=== PATIENT | female | born 1960 | race Caucasian/White ===

== ENCOUNTER 2017-09-30 09:24 | Emergency (ER) | payer BC, OTHER ==
[~2017-09-30] VITALS: Ht 175.3 cm; Wt 98.7 kg
[~2017-09-30 09:24] MED LIST: ATV/1 PO; BACL1TAB PO; DYZ PO; GABA100C13 PO; LEVO200T20 PO; MORP1CAP91 PO; OXYC-57 PO; RIZA10TA18 PO; RQP2 PO; TRAZ1TAB52 PO
[2017-09-30 09:30] VITALS: TEMP 36.7; Ht 175.3 cm; Wt 98.7 kg
[2017-09-30] MEDS ORDERED: SODIUM CHLORIDE 0.9% 1000ML 1,000 ML IV STA (09:45)
[2017-09-30] MEDS ORDERED: KETOROLAC TROMETHAMINE 30 MG/ML VIAL IV STA (09:45)
--- NOTE | 2017-09-30 09:57 | EMERGENCY ROOM VISIT NOTE ---
History Report prepared by Lolis: Keaton Fink Under the Supervision of: Dr. Theron Conrad M.D. First contact with patient: 09:38 Chief Complaint: ABDOMINAL PAIN Stated Complaint: PAIN IN LOWER RIGHT ABDOMINAL AREA History of Present Illness The patient is a 57 year old female who presents to the Emergency Room with complaints of constant right sided abdominal pain for the past two weeks. The patient states that the pain started in the right upper quadrant, and she went to the ED, though her CT and chest x-ray were negative. She states that the pain is now in the right lower quadrant. She state that there is a throbbing pain, and the pain is worsened with movement, and it is going into her back. The patient denies any recent heavy lifting, fever, chills, cough, congestion, nausea, vomiting, hematuria, and burning with urination. The patient states that she has been having normal bowel movements daily for the past two weeks, and she does not need to strain. The patient additionally notes that she has been having some right knee pain for the past 4 days, and she has a history of right knee surgery. She states that she has a history of 5 hernia repairs, a history of a cholecystectomy, and she had a ruptured ovarian cyst when she was younger. She does not have a history of kidney stones. The patient notes that she took Percocet yesterday for the pain, and she is not on any blood thinners. The patient state that she is active while at work. Source of History: patient Onset: 2 weeks ago Position: abdomen (right sided) Quality: other (throbbing) Timing: constant Modifying Factors (Worsening): movement Associated Symptoms: No fevers, No chills, No cough, No nausea, No vomiting Review of Systems See HPI for pertinent positives and negatives. A total of ten systems were reviewed and were otherwise negative. Past Medical & Surgical Surgical Problems: (1) H/O hernia repair (2) Hx of cholecystectomy Family History Cancer Hypertension Social History Smoking Status: Current Every Day Smoker Housing Status: lives with family Occupation Status: disabled Current/Historical Medications Scheduled Aspirin (Aspirin Ec), 81 MG PO HS Levothyroxine Sodium (Levothyroxine Sodium), 300 MCG PO HS Omeprazole (Prilosec), 20 MG PO HS Scheduled PRN Oxycodone/Acetaminophen 10MG/325MG (Percocet 10MG/325MG), 0.5 TAB PO TID PRN for Pain Allergies Coded Allergies: Morphine (Verified Allergy, Severe, GI SYMPTOMS, 09/30/17) GI sx, sob, low heart rate Fentanyl (Verified Adverse Reaction, Unknown, vomiting, 09/30/17) Physical Exam Vital Signs Date Time Temp Pulse Resp B/P (MAP) Pulse Ox O2 Delivery O2 Flow Rate FiO2 09/30/17 12:55 60 18 156/69 98 09/30/17 11:55 54 20 161/95 98 Room Air 09/30/17 09:30 36.7 60 20 163/120 98 Room Air Physical Exam GENERAL: Awake, alert, well-appearing, in no distress HENT: Normocephalic, atraumatic. Oropharynx unremarkable. EYES: Normal conjunctiva. Sclera non-icteric. NECK: Supple. No nuchal rigidity. FROM. No JVD. RESPIRATORY: Clear to auscultation. CARDIAC: Regular rate, normal rhythm. Extremities warm and well perfused. Pulses equal. ABDOMEN: Soft, non-distended. Mild right-sided abdominal discomfort with no discrete tenderness. No rebound or guarding. No masses. RECTAL: Deferred. MUSCULOSKELETAL: Chest examination reveals no tenderness. The back is symmetrical on inspection without obvious abnormality. There is no CVA tenderness to palpation. No joint edema. LOWER EXTREMITIES: Calves are equal size bilaterally and non-tender. No edema. No discoloration. NEURO: Normal sensorium. No sensory or motor deficits noted. SKIN: No rash or jaundice noted. Medical Decision & Procedures ER Provider Diagnostic Interpretation: Radiology results as stated below per my review and radiologist interpretation: PELVIC COMPLETE NON OB HISTORY: 57 years-old Female RLQ pain acute right lower quadrant abdominal pain COMPARISON: None available TECHNIQUE: Multiple real-time sonographic images of the deep pelvic structures were obtained transabdominal and transvaginally assessing grayscale appearance, color and spectral flow FINDINGS: TRANSABDOMINAL: Pelvic structures are not well seen with underdistention of the bladder. TRANSVAGINAL: Retroflexed uterus measures 6.3 x 3.3 x 4.1 cm. 3 mm hypoechoic focus is noted involving the fundal endometrium. Endometrium measures 6 mm in thickness. There is a 7 mm hypoechoic lesion of the mid uterus suggesting leiomyoma. Left ovary measures 2.0 x 1.1 x 1.1 cm and contains scattered nonshadowing echogenic foci which may reflect calcifications. Cystic focus adjacent to the left ovary measures up to 9 mm. Arterial inflow to the left ovary is documented. The right ovary measures 2.1 x 1.5 x 1.3 cm and also demonstrates echogenic nonshadowing foci. Arterial inflow to the right ovary is documented. No significant free pelvic fluid. IMPRESSION: 1. 7 mm intramural or sub-endometrial leiomyoma of the mid uterus . 2. Endometrium measures 6 mm, thickened if the patient is postmenopausal. Correlate clinically. 3. 3 mm cystic focus of the fundal endometrium may reflect loculated fluid within the endometrial canal or sub-endometrial cyst. 4. 9 mm cystic lesion adjacent to the left ovary suggests ovarian cyst or para ovarian cyst. The above report was generated using voice recognition software. It may contain grammatical, syntax or spelling errors. Electronically signed by: Martín Newman M.D. 09/30/2017 11:51 AM Dictated Date/Time: 09/30/2017 11:45 AM Laboratory Results 09/30/17 10:15 Red Blood Count 5.14, Mean Corpuscular Volume 88.1, Mean Corpuscular Hemoglobin 30.4, Mean Corpuscular Hemoglobin Concent 34.4, Mean Platelet Volume 10.4, Neutrophils (%) (Auto) 54.1, Lymphocytes (%) (Auto) 34.9, Monocytes (%) (Auto) 7.6, Eosinophils (%) (Auto) 2.6, Basophils (%) (Auto) 0.7, Neutrophils # (Auto) 4.15, Lymphocytes # (Auto) 2.67, Monocytes # (Auto) 0.58, Eosinophils # (Auto) 0.20, Basophils # (Auto) 0.05 09/30/17 10:15 Test 09/30/17 10:10 09/30/17 10:15 Urine Color YELLOW Urine Appearance CLEAR (CLEAR) Urine pH 7.5 (4.5-7.5) Urine Specific [place] 1.011 (1.000-1.030) Urine Protein NEG (NEG) Urine Glucose (UA) NEG (NEG) Urine Ketones NEG (NEG) Urine Occult Blood NEG (NEG) Urine Nitrite NEG (NEG) Urine Bilirubin NEG (NEG) Urine Urobilinogen NEG (NEG) Urine Leukocyte Esterase NEG (NEG) White Blood Count 7.66 K/uL (4.8-10.8) Red Blood Count 5.14 M/uL (4.2-5.4) Hemoglobin 15.6 g/dL (12.0-16.0) Hematocrit 45.3 % (37-47) Mean Corpuscular Volume 88.1 fL (80-100) Mean Corpuscular Hemoglobin 30.4 pg (25-34) Mean Corpuscular Hemoglobin Concent 34.4 g/dl (32-36) Platelet Count 293 K/uL (130-400) Mean Platelet Volume 10.4 fL (7.4-10.4) Neutrophils (%) (Auto) 54.1 % Lymphocytes (%) (Auto) 34.9 % Monocytes (%) (Auto) 7.6 % Eosinophils (%) (Auto) 2.6 % Basophils (%) (Auto) 0.7 % Neutrophils # (Auto) 4.15 K/uL (1.4-6.5) Lymphocytes # (Auto) 2.67 K/uL (1.2-3.4) Monocytes # (Auto) 0.58 K/uL (0.11-0.59) Eosinophils # (Auto) 0.20 K/uL (0-0.5) Basophils # (Auto) 0.05 K/uL (0-0.2) RDW Standard Deviation 40.8 fL (36.4-46.3) RDW Coefficient of Variation 12.7 % (11.5-14.5) Immature Granulocyte % (Auto) 0.1 % Immature Granulocyte # (Auto) 0.01 K/uL (0.00-0.02) Anion Gap 3.0 mmol/L (3-11) Est Creatinine Clear Calc Drug Dose 115.2 ml/min Estimated GFR () 113.6 Estimated GFR (Non- 98.0 BUN/Creatinine Ratio 19.2 (10-20) Lactic Acid Level 0.9 mmol/L (0.4-2.0) Calcium Level 9.9 mg/dl (8.5-10.1) Total Bilirubin 0.5 mg/dl (0.2-1) Direct Bilirubin 0.1 mg/dl (0-0.2) Aspartate Amino Transf (AST/SGOT) 13 U/L (15-37) Alanine Aminotransferase (ALT/SGPT) 26 U/L (12-78) Alkaline Phosphatase 101 U/L (45-117) Total Protein 7.6 gm/dl (6.4-8.2) Albumin 3.6 gm/dl (3.4-5.0) Lipase 129 U/L (73-393) Laboratory results reviewed by me Medications Administered Medications (Trade) Dose Ordered Sig/Daly Route Start Time Stop Time Status Last Admin Dose Admin Ketorolac Tromethamine (Toradol Inj) 15 mg NOW STAT IV 09/30/17 09:45 09/30/17 09:56 DC 09/30/17 10:03 15 MG Sodium Chloride 1,000 ml @ 999 mls/hr Q1H1M STAT IV 09/30/17 09:45 09/30/17 10:45 DC 09/30/17 10:02 999 MLS/HR ED Course 0938: The patient was evaluated in room B2. A complete history and physical exam was performed. 1103: I reevaluated the patient, and she was doing well. 1250: I reevaluated the patient. Discussed results and discharge instructions: she verbalized understanding and agreement. The patient is ready for discharge. Medical Decision I reviewed the patient's past medical history, medications, and the nursing notes as described above. Differential diagnosis: Etiologies such as appendicitis, diverticulitis, PUD, biliary pathology, UTI, pancreatitis, obstruction, mesenteric ischemia, aortic pathology, infections, inflammatory bowel disease, renal colic, as well as others were entertained. The patient is a 57-year-old woman with a past medical history of prior hernia repairs who presents emergency department with right-sided/right lower quadrant pain that has been ongoing for 2 weeks after being evaluated at OSH with negative workup including CT scan per hpi. On arrival, the patient is well- appearing in no acute distress afebrile stable vital signs. Patient has mild right-sided discomfort but no discrete tenderness, no peritoneal signs. 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 Labs unremarkable including WBC , lactate within normal limits. UA negative for infection. This with the patient that given that the patient had a negative CT scan 2 weeks ago and now with reassuring lab work I do not feel that this is indicated. Patient was agreeable with this. We agreed that we would proceed with a pelvic ultrasound which was done and was also unremarkable. Patient feeling improved after IV fluids and Toradol. Given the patient's significant physical activity and her job symptoms likely related to muscular strain. Plan for PCP follow-up. Findings and plan for follow-up reviewed with patient. Patient agreeable and d/c 'd per discharge instructions. Medication Reconcilliation Current Medication List: was personally reviewed by me Blood Pressure Screening Patient's blood pressure: Elevated blood pressure Blood pressure disposition: Referred to PCP Impression Primary Impression: Right sided abdominal pain Additional Impression: Abdominal muscle strain Scribe Attestation The scribe's documentation has been prepared under my direction and personally reviewed by me in its entirety. I confirm that the note above accurately reflects all work, treatment, procedures, and medical decision making performed by me. Departure Information Dispostion Home / Self-Care Referrals Ramón Morales M.D. (PCP) Forms Call Back Authorization, HOME CARE DOCUMENTATION FORM, IMPORTANT VISIT INFORMATION Patient Instructions ED Abdominal Pain Unkn Cause, ED Strain Abdominal Muscle, [facility] Additional Instructions Please follow up with your primary care physician in the next week for re- evaluation. Your symptoms are most likely due to a muscular strain. Otherwise, your exam, lab results, and pelvic ultrasound did not show signs of an emergent condition at this time. Acetaminophen or ibuprofen for pain and fevers as needed. Drink plenty of fluids to ensure hydration. Return to the emergency department for worsening symptoms as described in the accompanying instructions. Problem Qualifiers
[2017-09-30 10:35] LABS: BASO % 0.7 %; BASO ABS # 0.05 K/uL (0-0.2); EOS % 2.6 %; HEMATOCRIT 45.3 % (37-47); HEMOGLOBIN 15.6 g/dL (12.0-16.0); IG# 0.01 K/uL (0.00-0.02); LYMPH % 34.9 %; LYMPH ABS # 2.67 K/uL (1.2-3.4); MEAN CELL VOLUME 88.1 fL (80-100); MEAN CORPUSCULAR HEMOGLOBIN 30.4 pg (25-34); MEAN CORPUSCULAR HGB CONC 34.4 g/dl (32-36); MEAN PLATELET VOLUME 10.4 fL (7.4-10.4); MONO % 7.6 %; MONO ABS # 0.58 K/uL (0.11-0.59); NEUT % 54.1 %; NEUT ABS # 4.15 K/uL (1.4-6.5); PLATELET COUNT 293 K/uL (130-400); RED CELL DISTRIBUTION WIDTH CV 12.7 % (11.5-14.5); RED CELL DISTRIBUTION WIDTH SD 40.8 fL (36.4-46.3); WHITE BLOOD COUNT 7.66 K/uL (4.8-10.8)
[2017-09-30] MEDS ORDERED: LEVO300T31 PO (10:52)
[2017-09-30] MEDS ORDERED: ASPI81TA28 PO (10:52)
[2017-09-30] MEDS ORDERED: OXYC10TA80 PO (10:52)
[2017-09-30] MEDS ORDERED: PRLSR20 PO (10:52)
[2017-09-30 10:54] LABS: ALBUMIN 3.6 gm/dl (3.4-5.0); CALCIUM 9.9 mg/dl (8.5-10.1); CREATININE 0.69 mg/dl (0.60-1.20); POTASSIUM 4.3 mmol/L (3.5-5.1)
[2017-09-30 10:57] LABS: TOTAL PROTEIN 7.6 gm/dl (6.4-8.2)
--- NOTE | 2017-09-30 11:52 | DIAGNOSTIC IMAGING REPORT ---
PELVIC COMPLETE NON OB HISTORY: 57 years-old Female RLQ pain acute right lower quadrant abdominal pain COMPARISON: None available TECHNIQUE: Multiple real-time sonographic images of the deep pelvic structures were obtained transabdominal and transvaginally assessing grayscale appearance, color and spectral flow FINDINGS: TRANSABDOMINAL: Pelvic structures are not well seen with underdistention of the bladder. TRANSVAGINAL: Retroflexed uterus measures 6.3 x 3.3 x 4.1 cm. 3 mm hypoechoic focus is noted involving the fundal endometrium. Endometrium measures 6 mm in thickness. There is a 7 mm hypoechoic lesion of the mid uterus suggesting leiomyoma. Left ovary measures 2.0 x 1.1 x 1.1 cm and contains scattered nonshadowing echogenic foci which may reflect calcifications. Cystic focus adjacent to the left ovary measures up to 9 mm. Arterial inflow to the left ovary is documented. The right ovary measures 2.1 x 1.5 x 1.3 cm and also demonstrates echogenic nonshadowing foci. Arterial inflow to the right ovary is documented. No significant free pelvic fluid. IMPRESSION: 1. 7 mm intramural or sub-endometrial leiomyoma of the mid uterus . 2. Endometrium measures 6 mm, thickened if the patient is postmenopausal. Correlate clinically. 3. 3 mm cystic focus of the fundal endometrium may reflect loculated fluid within the endometrial canal or sub-endometrial cyst. 4. 9 mm cystic lesion adjacent to the left ovary suggests ovarian cyst or para ovarian cyst. The above report was generated using voice recognition software. It may contain grammatical, syntax or spelling errors. Electronically signed by: Martín Newman M.D. 09/30/2017 11:51 AM Dictated Date/Time: 09/30/2017 11:45 AM
[2017-09-30 12:55] VITALS: BP 156/69; PULSE 60; O2SAT 98
== END 2017-09-30 13:03 | disposition home or self-care (01) ==
LOC: C.EDB 09:26
DX: S39.011A Strain of muscle, fascia and tendon of abdomen, initial encounter (principal); X58.XXXA Exposure to other specified factors, initial encounter; R03.0 Elevated blood-pressure reading, without diagnosis of hypertension; Z98.890 Other specified postprocedural states; F17.200 Nicotine dependence, unspecified, uncomplicated; Z79.82 Long term (current) use of aspirin; Z88.6 Allergy status to analgesic agent